=== PATIENT | female | born 1975 | race Caucasian/White ===

== ENCOUNTER 2016-09-11 11:11 | Day surgery (SDC) | payer OTHER ==
[~2016-09-11] VITALS: Ht 154.9 cm; Wt 72.6 kg
[~2016-09-11 11:11] MED LIST: ADVAIR 100/501 DISK IH; ALEVE220 M2 PO; ALPRAZOLAM0.5 MG PO; ASPIR-LOW81 MG PO; CIPRO500 MG PO; CRYSELLE1 EACH PO; DOCUSATE SODIU100 MG PO; KEFLEX500 MG PO; LEVOTHYROXINE50 MCG PO; MOBIC15 MG PO; NAPROXEN500 MG PO; ONDANSETRON HCL8 MG PO; PERCOCET 5/31 TABLET PO; SINGULAIR10 MG PO; SUMATRIPTAN SU100 MG PO; TOPIRAMATE25 MG PO; TYLENOL WITH C1 EACH PO; ULTRAM50 MG PO; VENLAFAXINE HCL75 M3 PO; VENTOLIN HFA18 GM IH; XANAX0.5 MG PO; ZOFRAN4 MG PO; ZOLOFT100 MG PO
[2016-09-14] MEDS ORDERED: FLEXERIL10 MG PO (10:38)
[2016-09-14] MEDS ORDERED: NORCO 5/3251 TABLET PO (10:40)
== END 2016-09-11 13:35 | disposition home or self-care (01) ==
LOC: PAIN 11:11 → SDC 11:45 → PAIN 13:35
DX: G89.29 Other chronic pain (principal); M47.26 Other spondylosis with radiculopathy, lumbar region; F41.9 Anxiety disorder, unspecified; J45.909 Unspecified asthma, uncomplicated; M47.9 Spondylosis, unspecified; E03.9 Hypothyroidism, unspecified; E66.3 Overweight; Z68.30 Body mass index [BMI] 30.0-30.9, adult; Z79.891 Long term (current) use of opiate analgesic; Z79.899 Other long term (current) drug therapy; Z88.2 Allergy status to sulfonamides; Z85.43 Personal history of malignant neoplasm of ovary
CPT/HCPCS: J1030; J2250; J3010; S0020

== ENCOUNTER 2016-09-25 09:45 | Day surgery (SDC) | payer OTHER ==
[~2016-09-25] VITALS: Ht 154.9 cm; Wt 70.8 kg
[~2016-09-25 09:45] MED LIST changes: +COLACE100 MG PO; +FLEXERIL10 MG PO; +IMITREX100 MG PO; +LEVO-T50 MCG PO; +LO-DOSE ASPIRIN81 M2 PO; +MIRALAX17 GM PO; +NAPROSYN500 MG PO; +NORCO 5/3251 TABLET PO; +TOPAMAX25 MG PO; +VENLAFAXINE HCL75 M1 PO
== END 2016-09-25 11:47 | disposition home or self-care (01) ==
LOC: PAIN 09:45
DX: M51.36 Other intervertebral disc degeneration, lumbar region (principal); J45.909 Unspecified asthma, uncomplicated; E03.9 Hypothyroidism, unspecified; Z79.891 Long term (current) use of opiate analgesic; Z79.899 Other long term (current) drug therapy; Z88.2 Allergy status to sulfonamides
CPT/HCPCS: J1030; J2250; J3010; S0020

== ENCOUNTER 2016-12-10 12:24 | Day surgery (SDC) | payer OTHER ==
[~2016-12-10] VITALS: Ht 154.9 cm; Wt 68.0 kg
[~2016-12-10 12:24] MED LIST changes: +ARYMO ER15 MG PO; -TOPAMAX25 MG PO; +TOPAMAX50 MG PO
== END 2016-12-10 14:06 | disposition home or self-care (01) ==
LOC: PAIN 12:24 → SDC 13:00 → PAIN 13:00
DX: M47.26 Other spondylosis with radiculopathy, lumbar region (principal); M48.06 Spinal stenosis, lumbar region; M51.16 Intervertebral disc disorders with radiculopathy, lumbar region; M46.1 Sacroiliitis, not elsewhere classified; J45.40 Moderate persistent asthma, uncomplicated; E03.9 Hypothyroidism, unspecified; E66.3 Overweight; Z85.43 Personal history of malignant neoplasm of ovary; Z79.891 Long term (current) use of opiate analgesic; Z88.2 Allergy status to sulfonamides; Z68.28 Body mass index [BMI] 28.0-28.9, adult
CPT/HCPCS: J1030; J2250; J2405; J3010; S0020

== ENCOUNTER 2016-12-17 07:17 | Day surgery (SDC) | payer OTHER ==
[~2016-12-17] VITALS: Ht 154.9 cm; Wt 68.0 kg
[2016-12-19] MEDS ORDERED: ZOFRAN4 MG PO (11:41)
[2016-12-19] MEDS ORDERED: DESYREL100 MG PO (11:41)
[2016-12-19] MEDS ORDERED: NEURONTIN300 MG PO (11:42)
== END 2016-12-17 08:56 | disposition home or self-care (01) ==
LOC: PAIN 07:17 → SDC 07:45 → PAIN 08:56
DX: M47.26 Other spondylosis with radiculopathy, lumbar region (principal); M51.16 Intervertebral disc disorders with radiculopathy, lumbar region; M54.9 Dorsalgia, unspecified; G89.29 Other chronic pain; M46.1 Sacroiliitis, not elsewhere classified; F41.8 Other specified anxiety disorders; E03.9 Hypothyroidism, unspecified; J45.40 Moderate persistent asthma, uncomplicated; E66.3 Overweight; Z68.30 Body mass index [BMI] 30.0-30.9, adult; M48.06 Spinal stenosis, lumbar region; Z85.43 Personal history of malignant neoplasm of ovary; Z88.2 Allergy status to sulfonamides
CPT/HCPCS: J1030; J1885; J2250; J2405; J3010; S0020

== ENCOUNTER 2016-12-20 08:27 | Day surgery (SDC) | payer OTHER ==
[~2016-12-20] VITALS: Ht 154.9 cm; Wt 66.8 kg
[~2016-12-20 08:27] MED LIST changes: +DESYREL100 MG PO; +NEURONTIN300 MG PO
== END 2016-12-20 10:25 | disposition home or self-care (01) ==
LOC: PAIN 08:27 → SDC 09:00 → PAIN 10:25
DX: M54.16 Radiculopathy, lumbar region (principal); J45.909 Unspecified asthma, uncomplicated; E03.9 Hypothyroidism, unspecified; Z88.2 Allergy status to sulfonamides
CPT/HCPCS: J1100; J2250; J3010

== ENCOUNTER 2017-11-18 07:39 | Day surgery (SDC) | payer OTHER ==
[~2017-11-18] VITALS: Ht 154.9 cm; Wt 65.8 kg
[~2017-11-18 07:39] MED LIST changes: +AMBIEN5 MG PO; +ASMANEX HFA13 G1 IH; +CRANBERRY200 MG PO; +LINZESS145 MCG PO; +PROZAC10 MG PO; +TROKENDI XR100 MG PO; +VITAMIN C250 MG PO; +VOLTAREN50 MG PO
== END 2017-11-18 09:32 | disposition home or self-care (01) ==
LOC: PAIN 07:39 → SDC 08:00 → PAIN 08:00
DX: M47.816 Spondylosis without myelopathy or radiculopathy, lumbar region (principal); G89.29 Other chronic pain; M62.830 Muscle spasm of back; M46.1 Sacroiliitis, not elsewhere classified; M54.16 Radiculopathy, lumbar region; J45.909 Unspecified asthma, uncomplicated; E03.9 Hypothyroidism, unspecified; Z79.82 Long term (current) use of aspirin; Z88.2 Allergy status to sulfonamides
CPT/HCPCS: J1030; J1885; J2250; S0020

== ENCOUNTER 2017-12-02 11:49 | Day surgery (SDC) | payer OTHER ==
[~2017-12-02] VITALS: Ht 154.9 cm; Wt 65.8 kg
[2017-12-02 15:15] VITALS: BP 93/55
== END 2017-12-02 15:19 | disposition home or self-care (01) ==
LOC: PAIN 11:49 → SDC 12:30 → PAIN 12:30
PROC: 3E0T3TZ Introduction of Destructive Agent into Peripheral Nerves and Plexi, Percutaneous Approach (ICD-10-PCS; principal; 2017-12-02)
PROC: BR161ZZ Fluoroscopy of Lumbar Facet Joint(s) using Low Osmolar Contrast (ICD-10-PCS; principal; 2017-12-02)
DX: M47.816 Spondylosis without myelopathy or radiculopathy, lumbar region (principal); M62.830 Muscle spasm of back; G89.29 Other chronic pain; M46.1 Sacroiliitis, not elsewhere classified; M54.16 Radiculopathy, lumbar region
CPT/HCPCS: J1030; J1885; J2250; S0020